=== PATIENT | male | born 1995 | race Caucasian/White ===

== ENCOUNTER 2020-05-05 06:54 | Day surgery (SDC) | payer BC ==
[~2020-05-05] VITALS: Ht 188 cm; Wt 153.0 kg
[2020-05-05] MEDS ORDERED: BACITRACIN OINT 500U/GM, 15 GM ONE (07:02)
[2020-05-05] MEDS ORDERED: EPINEPHRINE TOPICAL SOLN 1 MG/ML, 30ML ONE (07:02)
[2020-05-05] MEDS ORDERED: LIDOCAINE 1%-EPI 1:100K, 20ML ONE (07:02)
[2020-05-05 07:27] VITALS: BP 131/86
[2020-05-05] MEDS ORDERED: CHLORHEXIDINE 15 ML UDC MM STA (07:39)
[2020-05-05] MEDS ORDERED: LACTATED RINGERS 1,000 ML IV SCH (07:40)
[2020-05-05] MEDS ORDERED: no medications (07:59)
[2020-05-05] MEDS ORDERED: PLEASE ENTER HEIGHT AND WEIGHT MC SCH (08:00)
[2020-05-05] MEDS ORDERED: PLEASE ENTER ALLERGIES MC SCH (08:00)
[2020-05-05] MEDS ORDERED: CHLORHEXIDINE 15 ML UDC ONE (08:05)
[2020-05-05] MEDS ORDERED: ROCURONIUM 10MG/ML,5ML ONE (09:09)
[2020-05-05] MEDS ORDERED: CEFAZOLIN PMX 2GM/100ML ONE (09:09)
[2020-05-05] MEDS ORDERED: MIDAZOLAM 1 MG/ML, 2ML ONE (09:09)
[2020-05-05] MEDS ORDERED: FENTANYL PF 100 MCG/2ML ONE (09:09)
[2020-05-05] MEDS ORDERED: SUCCINYLCHOLINE 20 MG/ML, 10ML ONE (09:09)
[2020-05-05] MEDS ORDERED: MEPERIDINE/PF 25MG/ML,1ML ONE (09:09)
[2020-05-05] MEDS ORDERED: PROPOFOL 10 MG/ML, 20ML ONE (09:09)
[2020-05-05] MEDS ORDERED: DEXAMETHASONE 4 MG/ML, 5ML ONE (09:09)
[2020-05-05] MEDS ORDERED: ONDANSETRON 2MG/ML, 2ML ONE (09:09)
[2020-05-05] MEDS ORDERED: LIDOCAINE 1%, 2ML ONE (09:09)
[2020-05-05] MEDS ORDERED: MEPERIDINE/PF 25MG/0.5ML IVPush PRN (09:30)
[2020-05-05] MEDS ORDERED: HYDROmorphone 1 MG/ML, 1ML INJ IVPush PRN (09:30)
[2020-05-05] MEDS ORDERED: OXYcodone 5 MG/5 ML ORAL.SOL UDC PO PRN (09:30)
[2020-05-05] MEDS ORDERED: ACETAMINOPHEN 325 MG TABLET PO PRN (09:30)
[2020-05-05] MEDS ORDERED: PROMETHAZINE 25 MG/ML, 1ML IVPush PRN (09:30)
[2020-05-05] MEDS ORDERED: ONDANSETRON 2MG/ML, 2ML IVPush PRN (09:30)
[2020-05-05] MEDS ORDERED: PROMETHAZINE 25 MG SUPP PR PRN (09:30)
[2020-05-05] MEDS ORDERED: DIAZEPAM 5 MG/ML, 2ML IVPush PRN (09:30)
[2020-05-05] MEDS: FENTANYL PF 100 MCG/2ML IV PRN ×2 (12:10→12:15)
== END 2020-05-05 14:25 | disposition home or self-care (01) ==
LOC: OUT 06:54
PROVIDERS: ATTEND Otolaryngology
DX: J34.2 Deviated nasal septum (principal); J34.3 Hypertrophy of nasal turbinates; J34.89 Other specified disorders of nose and nasal sinuses; J01.01 Acute recurrent maxillary sinusitis; E66.01 Morbid (severe) obesity due to excess calories; Z68.41 Body mass index [BMI] 40.0-44.9, adult; Z79.899 Other long term (current) drug therapy; Z88.0 Allergy status to penicillin; Z72.0 Tobacco use; Z72.89 Other problems related to lifestyle; Z82.49 Family history of ischemic heart disease and other diseases of the circulatory system
CPT/HCPCS: 30130; 30520; 31240; 31256; 31259; 88304; 88311; J0330; J0690; J1100; J2175; J2250; J2405; J2550; J2704; J2710; J3010; J3490; J7120

== ENCOUNTER 2020-05-12 05:28 | Day surgery (SDC) | payer BC ==
[~2020-05-12] VITALS: Ht 188 cm; Wt 152.0 kg
[~2020-05-12 05:28] MED LIST: no medications
[2020-05-12] MEDS ORDERED: LACTATED RINGERS 1,000 ML IV SCH (06:00)
[2020-05-12] MEDS ORDERED: CHLORHEXIDINE 15 ML UDC MM ONE (06:00)
[2020-05-12] MEDS ORDERED: OXYMETAZOLINE NASAL SPRAY 0.05%, 15ML ONE (06:20)
[2020-05-12 06:31] VITALS: BP 135/90
[2020-05-12] MEDS ORDERED: ANTIBIOTIC PO (06:39)
[2020-05-12] MEDS ORDERED: ACET-1600 PO (06:39)
[2020-05-12] MEDS ORDERED: MIDAZOLAM 1 MG/ML, 2ML ONE (06:54)
[2020-05-12] MEDS ORDERED: ACETAMINOPHEN 650 MG/20.3 ML UDC ONE (07:30)
[2020-05-12] MEDS ORDERED: ACETAMINOPHEN 325 MG TABLET PO PRN (07:30)
== END 2020-05-12 08:30 | disposition home or self-care (01) ==
LOC: OUT 05:28
PROVIDERS: ATTEND Otolaryngology
DX: J32.8 Other chronic sinusitis (principal); Z11.59 Encounter for screening for other viral diseases; F17.210 Nicotine dependence, cigarettes, uncomplicated; Z88.0 Allergy status to penicillin; Z98.890 Other specified postprocedural states; Z72.89 Other problems related to lifestyle; Z79.899 Other long term (current) drug therapy
CPT/HCPCS: 31299; 36415; 87635; J2250; J7120